=== PATIENT | male | born 1960 | race Caucasian/White ===

== ENCOUNTER → 2017-12-04 | Outpatient (CLI) | payer OTHER ==
--- NOTE | 2017-12-04 11:15 | XR ---
EXAMINATION TYPE: XR shoulder complete RT DATE OF EXAM: 12/04/2017 CLINICAL HISTORY: pain TECHNIQUE: Three views of the right shoulder are obtained. COMPARISON: None FINDINGS: There is no acute fracture/dislocation evident. The acromioclavicular and glenohumeral susan int spaces appear moderately narrowed. The visualized ribs are intact and unremarkable. IMPRESSION: 1. There is no acute fracture or dislocation. ICD 10 NO FRACTURE, INITIAL EVALUATION
== END | disposition home or self-care (01) ==
LOC: RADXRMAIN 10:50
PROVIDERS: ATTEND Internal Medicine
DX: M25.511 Pain in right shoulder (principal)

== ENCOUNTER → 2018-01-16 | Outpatient (CLI) | payer OTHER ==
--- NOTE | 2018-01-16 11:32 | P.STRESS ---
- Stress Test Note Stress Test Results/Findings: Exam Performed: stress test Exam Date: 01/16/18 Reason for Exam: PRE-OP Height: 5 ft 11 in Weight: 77.111 kg Protocol: ISSAC Stage: 3 Duration of Exercise: 8:00 Resting Heart Rate: 63 Resting Blood Pressure: 131/85 Maximum Achieved Heart Rate: 140 Maximum Achieved Blood Pressure: 169/75 85% PMHR: 139 100% PMHR: 164 METS: 9.7 Technologist Comment: Stress Test Results/Findings: THIS IS A 57-YEAR-OLD GENTLEMAN WITH HISTORY OF SMOKING AND FAMILY HISTORY BEING EVALUATED A PREOP PROCEDURE TO ASSESS CARDIAC STATUS. STRESS data: Baseline EKG showed sinus rhythm with normal CO interval and QRS duration. Blood pressure at rest is 131/85, pulse rate of 63. Patient walked on the Issac protocol for 8 minutes achieving a maximal heart rate of 140 with blood pressure 160/74. EKGs taken during and after the exercise did not reveal any changes to suggest ischemia. Final impression: #1. Negative stress test #2. Patient did not express any chest pain #3. About average exercise capacity #4. No arrhythmias detected
--- NOTE | 2018-01-17 12:50 | EST ---
Stress Test Results/Findings: Exam Performed: stress test Exam Date: 01/16/18 Reason for Exam: PRE-OP Height: 5 ft 11 in Weight: 77.111 kg Protocol: ISSAC Stage: 3 Duration of Exercise: 8:00 Resting Heart Rate: 63 Resting Blood Pressure: 131/85 Maximum Achieved Heart Rate: 140 Maximum Achieved Blood Pressure: 169/75 85% PMHR: 139 100% PMHR: 164 METS: 9.7 Technologist Comment: Stress Test Results/Findings: THIS IS A 57-YEAR-OLD GENTLEMAN WITH HISTORY OF SMOKING AND FAMILY HISTORY BEING EVALUATED A PREOP PROCEDURE TO ASSESS CARDIAC STATUS. STRESS data: Baseline EKG showed sinus rhythm with normal MI interval and QRS duration. Blood pressure at rest is 131/85, pulse rate of 63. Patient walked on the Issac protocol for 8 minutes achieving a maximal heart rate of 140 with blood pressure 160/74. EKGs taken during and after the exercise did not reveal any changes to suggest ischemia. Final impression: #1. Negative stress test #2. Patient did not express any chest pain #3. About average exercise capacity #4. No arrhythmias detected MTDD
== END | disposition home or self-care (01) ==
LOC: RADNMMAIN 08:22
PROVIDERS: ATTEND Internal Medicine
DX: Z13.6 Encounter for screening for cardiovascular disorders (principal); Z82.49 Family history of ischemic heart disease and other diseases of the circulatory system
CPT/HCPCS: 93017